=== PATIENT | female | born 1950 | race Two or more races ===

== ENCOUNTER 2018-01-29 08:42 | Outpatient (CLI) | payer OTHER ==
[~2018-01-29 08:42] MED LIST: ATENOLOL50 MG; CELEBREX100 MG PO; CHLORTHALIDONE25 MG; DIOVAN160 M1; IBUPROFEN800 MG PO; LEVOTHYROXINE25 MCG; MEDROL4 MG PO; NEURONTIN300 MG PO; ORPH100T PO; PANTOPRAZOLE SO40 MG; SKELAXIN800 MG PO
== END 2018-01-29 08:46 | disposition home or self-care (01) ==
LOC: SONOGRAMA 08:42
DX: R10.13 Epigastric pain (principal)

== ENCOUNTER 2018-06-08 11:11 | Outpatient (CLI) | payer OTHER | END 2018-06-08 12:00 | disposition home or self-care (01) | LOC: NUCLEAR 11:11 | DX: M81.0 Age-related osteoporosis without current pathological fracture (principal); Z68.30 Body mass index [BMI] 30.0-30.9, adult ==

== ENCOUNTER 2021-05-15 14:48 | Outpatient (CLI) | payer OTHER | END 2021-05-15 14:52 | disposition home or self-care (01) | LOC: MAMO-SONO 14:48 | PROVIDERS: ATTEND Specialist | DX: R10.10 Upper abdominal pain, unspecified (principal); Z68.30 Body mass index [BMI] 30.0-30.9, adult; I10 Essential (primary) hypertension; E78.2 Mixed hyperlipidemia; Z12.31 Encounter for screening mammogram for malignant neoplasm of breast ==

== ENCOUNTER 2021-06-12 08:19 | Outpatient (CLI) | payer OTHER | END 2021-06-12 08:24 | disposition home or self-care (01) | LOC: RX STUDY 08:19 | DX: R13.12 Dysphagia, oropharyngeal phase (principal); K21.9 Gastro-esophageal reflux disease without esophagitis; T18.8XXA Foreign body in other parts of alimentary tract, initial encounter ==

== ENCOUNTER 2021-08-08 12:14 | Outpatient (CLI) | payer OTHER | END 2021-08-08 12:20 | disposition home or self-care (01) | LOC: RAD 12:14 | PROVIDERS: ATTEND Ophthalmology | DX: I10 Essential (primary) hypertension (principal); H25.011 Cortical age-related cataract, right eye; Z98.41 Cataract extraction status, right eye ==

== ENCOUNTER 2023-10-23 12:48 | Outpatient (CLI) | payer OTHER | END 2023-10-23 13:02 | disposition home or self-care (01) | LOC: RAD 12:48 | DX: M72.2 Plantar fascial fibromatosis (principal) ==